=== PATIENT | female | born 1985 | race Caucasian/White ===

== ENCOUNTER 2017-06-28 10:53 | Emergency (ER) | payer OTHER ==
[2017-06-28 11:17] VITALS: BP 120/83
--- NOTE | 2017-06-28 11:21 | UC ---
Eye Complaint HPI - HPI Summary HPI Summary: pt is c/o red, itchy, swollen eye lids. she had false lashes applied on tuesday. this began on tuesday. she had them removed yesterday. her lids are not as bad but are still very bothersome. no eye pain, visual change or discharge. no uri, NOONAN or fever. - History of Current Complaint Stated Complaint: BILATERAL EYE COMPLAINT Time Seen by Provider: 06/28/17 10:54 Hx Obtained From: Patient Onset/Duration: Gradual Onset Timing: Constant Alleviating Factor(s): Other - cool compress and lash removal Associated Signs And Symptoms: Negative: Photophobia, Drainage (Purulent), Vision Impairment Bilateral, Fever - Risk Factors Penetrating Injury Risk Factor: Negative Globe Rupture Risk Factors: Negative Acute Glaucoma Risk Factors: Negative - Allergies/Home Medications Allergies/Adverse Reactions: Allergies Allergy/AdvReac Type Severity Reaction Status Date / Time sertraline [From Zoloft] Allergy Unknown Hives Verified 06/28/17 11:04 sulfamethoxazole Allergy Unknown Hives Verified 06/28/17 11:04 [From Bactrim] trimethoprim [From Bactrim] Allergy Unknown Hives Verified 06/28/17 11:04 Home Medications: Home Medications Dextroamphetamine/Amphetamine [Adderall 30 mg-] 1 tab PO DAILY 06/28/17 [ History Confirmed 06/28/17] Metoprolol Succinate [Toprol Xl] 100 mg PO DAILY 06/28/17 [History Confirmed ] Norgestimate-Ethinyl Estradiol [Rsv-Rg-Hhtokr Tablet] 1 each PO DAILY 06/28/17 [ History Confirmed 06/28/17] PMH/Surg Hx/FS Hx/Imm Hx - Additional Past Medical History Additional PMH: ADHD Cardiovascular History: Hypertension - Surgical History Surgical History: Yes - LEEP - Social History Occupation: Employed Full-time - Immunization History Vaccination Up to Date: Yes Review of Systems Constitutional: Negative Skin: Negative Eyes: Negative ENT: Negative Respiratory: Negative Cardiovascular: Negative Gastrointestinal: Negative Genitourinary: Negative Motor: Negative Neurovascular: Negative Musculoskeletal: Negative Neurological: Negative Psychological: Negative Is Patient Immunocompromised?: No All Other Systems Reviewed And Are Negative: Yes Physical Exam Triage Information Reviewed: Yes Appearance: Well-Appearing Eyes: Positive: Conjunctiva Clear, Other: - Mild periorbital edema and pink but not warm or tender. PERRL, EOMI with no pain. No auricular adenopathy.. Negative: Discharge ENT: Positive: Normal ENT inspection Neck: Positive: Supple, Nontender, No Lymphadenopathy Respiratory: Positive: Lungs clear, Normal breath sounds Cardiovascular: Positive: RRR, No Murmur Abdomen Description: Positive: Nontender, No Organomegaly, Soft Bowel Sounds: Positive: Present Neurological: Positive: Alert Psychological: Positive: Age Appropriate Behavior Skin Exam: Normal Eye Complaint Course/Dx - Course Course Of Treatment: hx and exam c/w contact dermatitis. symptoms improved a little since lashes remove and with cool compress. no concern for infection. non tender, no fever or adenopathy. s/s's improving since lashes removed. - Differential Dx/Diagnosis Provider Diagnoses: contact dermatitis Discharge - Sign-Out/Discharge Documenting (check all that apply): Discharge - Discharge Plan Condition: Stable Disposition: HOME Prescriptions: predniSONE TAB* [Deltasone TAB*] 40 mg PO DAILY 3 Days #6 tab Patient Education Materials: Contact Dermatitis (DC) Forms: *Work Release Referrals: Alanis Andrews DO [Primary Care Provider] - 5 Days - Billing Disposition and Condition Condition: STABLE Disposition: HOME
== END 2017-06-28 11:27 | disposition home or self-care (01) ==
LOC: UCCORT 10:53
DX: L30.9 Dermatitis, unspecified (principal); Z88.2 Allergy status to sulfonamides; Z88.8 Allergy status to other drugs, medicaments and biological substances
CPT/HCPCS: 99202; G0463